=== PATIENT | female | born 2000 | race Caucasian/White ===

== ENCOUNTER 2021-05-18 18:30 | Emergency (ER) | payer BC ==
[~2021-05-18] VITALS: Ht 157.5 cm; Wt 78.0 kg
[2021-05-18 19:46] LABS: HEMATOCRIT 40.8 % (31.2-41.9); MEAN CORPUSCULAR VOLUME 83.1 fL (75.5-95.3); PLATELET COUNT (AUTO) 284 K/uL (179-408)
[2021-05-18 19:47] LABS: CARBON DIOXIDE 25 mmol/L (21-32); CHLORIDE 102 mmol/L (98-107); CREATININE 0.9 mg/dL (0.6-1.3); GLUCOSE 91 mg/dL (74-106); POTASSIUM 3.6 mmol/L (3.5-5.1); UREA NITROGEN, BLOOD 11 mg/dL (7-18)
[2021-05-18 20:00] LABS: *BILIRUBIN,URIN NEGATIVE (NEGATIVE); *BLOOD, URINE 3+ (NEGATIVE); *CLARITY,URINE CLEAR (CLEAR); *COLOR,URINE YELLOW (YELLOW); *KETONES,URINE 1+ (NEGATIVE); *UROBILINOGEN,URINE 0.2 E.U./dl (NORMAL); LEUKOCYTE ESTERASE ,URINE 1+ (NEGATIVE); NITRITE, URINE NEGATIVE (NEGATIVE); UGLUCOSE NEGATIVE (NEGATIVE)
[2021-05-18 20:03] LABS: ALANINE AMINOTRANSFERASE 40 U/L (14-59); ALKALINE PHOSPHATASE 43 U/L (50-136); ASPARTATE AMINOTRANSFERASE 29 U/L (15-37); BILIRUBIN,DIRECT 0.1 mg/dL (0.0-0.2); BILIRUBIN,TOTAL 0.4 mg/dL (0.2-1.0); TOTAL PROTEIN, SERUM 8.5 g/dL (6.4-8.2)
[2021-05-18 20:03] LABS: *URINE HCG, QUAL NEGATIVE (NEGATIVE)
[2021-05-18 20:08] LABS: *AMPHETAMINE, URINE NEGATIVE (NEGATIVE); *CANNABINOID, URINE NEGATIVE (NEGATIVE); *COCCAINE, URINE NEGATIVE (NEGATIVE); *OPIATE, URINE NEGATIVE (NEGATIVE); *PHENCYCLIDINE SCREEN,URINE NEGATIVE (NEGATIVE)
[2021-05-18] MEDS ORDERED: MECLIZINE HCL 25 MG TABLET PO ONE (21:15)
[2021-05-18] MEDS ORDERED: ONDANSETRON 4 MG/2 ML VIAL IV ONE (21:15)
[2021-05-18] MEDS ORDERED: IV NS 1000 ML 1,000 ML IV ONE (21:15)
--- NOTE | 2021-05-18 21:40 | NUR ---
Pt left to CT scan via [facility].
[2021-05-18] MEDS ORDERED: IOHEXOL 350 100 ML INFUS..BTL ONE (21:57)
--- NOTE | 2021-05-18 22:14 | NUR ---
pt returned from ct scan
[2021-05-18] MEDS ORDERED: ONDA4TAB11 PO (23:23)
[2021-05-18] MEDS ORDERED: MECL-159 PO (23:23)
[2021-05-18] MEDS ORDERED: NITR100C11 PO (23:23)
--- NOTE | 2021-05-18 23:37 | NUR ---
Patient discharged to home in stable condition. Written and verbal after care instructions given. Patient verbalizes understanding of instructions. Stressed follow up or return to ER for worsening s/s. pt ambulated with steady gait. denies pain.
[2021-05-18 23:38] VITALS: BP 112/66
[2021-05-19 00:56] LABS: BACTERIA,URINE MODERATE /HPF (NONE SEEN); RBC,URINE 0-3 /HPF (0-3); SQUAMOUS EPITHELIAL CELL,UR MODERATE /HPF (NONE SEEN)
== END 2021-05-18 23:39 | disposition home or self-care (01) ==
LOC: ER 18:35
DX: R42 Dizziness and giddiness (principal); R07.89 Other chest pain; R51.9 Headache, unspecified; Z20.822 Contact with and (suspected) exposure to COVID-19; R11.0 Nausea; Z86.16 Personal history of COVID-19; Z79.3 Long term (current) use of hormonal contraceptives
CPT/HCPCS: 36415; 71045; 71275; 80048; 80076; 80307; 81001; 84443; 84484; 84703; 85025; 85379; 85730; 87086; 87426; 93005; 96361; 96374; 99285; J2405; Q9967; A4663; J7030; J8597

== ENCOUNTER 2021-06-29 13:10 | Emergency (ER) | payer BC ==
[~2021-06-29] VITALS: Ht 157.5 cm; Wt 74.8 kg
[~2021-06-29 13:10] MED LIST: MECL-159 PO; NITR100C11 PO; ONDA4TAB11 PO
--- NOTE | 2021-06-29 13:53 | NUR ---
Pt states she has been feeling pressure in her chest and breasts x 1 month, epigastric ABD pain, and feeling she can't fully catch her breath. Pt denies dizziness. Appears to have anxiety, no other distress noted.
[2021-06-29 14:08] LABS: HEMATOCRIT 39.9 % (31.2-41.9); MEAN CORPUSCULAR HEMOGLOBIN 28.3 uug (24.7-32.8); MEAN CORPUSCULAR VOLUME 81.4 fL (75.5-95.3); PLATELET COUNT (AUTO) 211 K/uL (179-408)
[2021-06-29 14:22] LABS: ALANINE AMINOTRANSFERASE 38 U/L (14-59); ALKALINE PHOSPHATASE 53 U/L (50-136); ASPARTATE AMINOTRANSFERASE 19 U/L (15-37); BILIRUBIN,DIRECT 0.1 mg/dL (0.0-0.2); BILIRUBIN,TOTAL 0.4 mg/dL (0.2-1.0); CARBON DIOXIDE 25 mmol/L (21-32); CHLORIDE 103 mmol/L (98-107); CREATININE 0.9 mg/dL (0.6-1.3); GLUCOSE 79 mg/dL (74-106); POTASSIUM 3.5 mmol/L (3.5-5.1); TOTAL PROTEIN, SERUM 8.2 g/dL (6.4-8.2); UREA NITROGEN, BLOOD 12 mg/dL (7-18)
--- NOTE | 2021-06-29 15:16 | NUR ---
Gave pt d/c instructions, pt verbalized understanding.
[2021-06-30] MEDS ORDERED: IBUP-1955 PO (11:03)
== END 2021-06-29 15:18 | disposition home or self-care (01) ==
LOC: ER 13:10
DX: R07.9 Chest pain, unspecified (principal); N64.4 Mastodynia
CPT/HCPCS: 36415; 71045; 84484; 85025; 93005; A4663

== ENCOUNTER 2021-06-30 10:11 | Emergency (ER) | payer BC ==
[~2021-06-30] VITALS: Ht 157.5 cm; Wt 72.6 kg
[2021-06-30] MEDS ORDERED: ONDANSETRON ODT 4 MG TAB.RAPDIS SL ONE (11:00)
--- NOTE | 2021-06-30 11:00 | NUR ---
patient seen by Dr. Mejia.
[2021-06-30] MEDS ORDERED: IBUP-1955 PO (11:03)
[2021-06-30] MEDS ORDERED: ONDANSETRON ODT 4 MG TAB.RAPDIS ONE (11:13)
--- NOTE | 2021-06-30 11:17 | NUR ---
discharge instructions given and signed by patient with Rx.
== END 2021-06-30 11:24 | disposition home or self-care (01) ==
LOC: ER 10:11
DX: N64.4 Mastodynia (principal)
CPT/HCPCS: A4663; Q0162

== ENCOUNTER 2022-11-24 12:56 | Emergency (ER) | payer BC, MEDICAID, OTHER ==
[~2022-11-24] VITALS: Ht 157.5 cm; Wt 72.6 kg
[~2022-11-24 12:56] MED LIST changes: +IBUP-1955 PO
[2022-11-24] MEDS ORDERED: ONDA4TAB11 PO (13:56)
[2022-11-24] MEDS ORDERED: BENZ-13 PO (13:56)
[2022-11-24 14:04] VITALS: BP 111/72; O2SAT 100
== END 2022-11-24 14:04 | disposition home or self-care (01) ==
LOC: ER 12:59
DX: B34.9 Viral infection, unspecified (principal); J06.9 Acute upper respiratory infection, unspecified; Z79.1 Long term (current) use of non-steroidal anti-inflammatories (NSAID); Z79.899 Other long term (current) drug therapy
CPT/HCPCS: A4663

== ENCOUNTER 2023-09-02 12:58 | Emergency (ER) | payer MEDICAID ==
[~2023-09-02] VITALS: Ht 160 cm; Wt 86.2 kg
[~2023-09-02 12:58] MED LIST changes: +BENZ-13 PO
[2023-09-02] MEDS ORDERED: ACETAMINOPHEN 325 MG TABLET ONE (15:28)
[2023-09-02] MEDS ORDERED: predniSONE 50 MG TABLET ONE (15:29)
[2023-09-02] MEDS: ACETAMINOPHEN 325 MG TABLET PO ONE (15:33)
[2023-09-02] MEDS: predniSONE 50 MG TABLET PO ONE (15:33)
[2023-09-02 15:45] LABS: BASOPHILS % (AUTO) 0.3 % (0.0-2.0); EOSINOPHILS # (AUTO) 0.1 K/uL (0.0-0.7); EOSINOPHILS % (AUTO) 1.5 % (0.0-7.0); HEMATOCRIT 40.2 % (31.2-41.9); HEMOGLOBIN 13.5 g/dL (10.9-14.3); LYMPHOCYTES # (AUTO) 0.9 K/uL (0.8-4.8); LYMPHOCYTES % (AUTO) 10.2 % (20.5-51.5); MEAN CORPUSCULAR HGB CONC 34 g/dL (32.3-35.6); MEAN CORPUSCULAR VOLUME 83.3 fL (75.5-95.3); MONOCYTES # (AUTO) 0.6 K/uL (0.1-1.30); MONOCYTES % (AUTO) 6.7 % (0.0-11.0); NEUTROPHILS # (AUTO) 7.6 K/uL (1.8-8.9); NEUTROPHILS % (AUTO) 81.3 % (38.5-71.5); PLATELET COUNT (AUTO) 200 K/uL (179-408); RED BLOOD CELL COUNT(AUTO) 4.82 MIL/uL (3.63-4.92); RED CELL DISTRIBUTION WIDTH 13.6 % (12.3-17.7); WHITE BLOOD COUNT (AUTO) 9.3 K/uL (3.8-11.8)
[2023-09-02 15:50] LABS: DIFFERENTIAL COMMENT 1
[2023-09-02 16:00] LABS: ALBUMIN 4.2 g/dL (3.4-5.0); BILIRUBIN,DIRECT 0.1 mg/dL (0.0-0.2); BILIRUBIN,TOTAL 0.4 mg/dL (0.2-1.0); CALCIUM 9.2 mg/dL (8.5-10.1); CREATININE 0.9 mg/dL (0.6-1.3); POTASSIUM 4.1 mmol/L (3.5-5.1)
[2023-09-02] MEDS ORDERED: IBUP-1957 PO (16:18)
[2023-09-02 16:24] VITALS: BP 138/91; O2SAT 100
== END 2023-09-02 16:26 | disposition home or self-care (01) ==
LOC: ER 13:06
DX: R05.9 Cough, unspecified (principal); J02.9 Acute pharyngitis, unspecified; R51.9 Headache, unspecified; Z79.899 Other long term (current) drug therapy
CPT/HCPCS: 99283; 87804 ×2; 80076; 80048; 85025; 86403; 87070; 36415; J7512; A4606; A4663